=== PATIENT | female | born 1945 | race Caucasian/White ===

== ENCOUNTER 2020-11-22 11:39 | Emergency (ER) | payer MEDICARE, OTHER ==
[2020-11-22] MEDS ORDERED: Nitroglycerin 0.4 MG Tab.SL SL PRN (12:04)
[2020-11-22] MEDS ORDERED: Sodium Chloride 0.9% 1,000 ML IV ONE (12:04)
--- NOTE | 2020-11-22 12:13 | EDM.PDOC ---
ED HPI GENERAL MEDICAL PROBLEM - General Chief Complaint: Chest Pain Stated Complaint: CHEST HEAVINESS, LIGHT HEADED Time Seen by Provider: 11/22/20 12:03 Source of Information: Reports: Patient History Limitations: Reports: No Limitations - History of Present Illness INITIAL COMMENTS - FREE TEXT/NARRATIVE: Patient presents with chest pressure behind the sternum for 4-5 days and a mild burning pain of left upper chest and shoulder. She's also had a few brief episodes of lightheadedness that only last a couple seconds. No pain in neck or jaw. No diaphoresis, N/V. She says it doesn't seem to be affected by activity but sometimes worse after eating. No worsening or new pain in last several hours but she wanted to know if it could be her heart. Middle Chest Pain Score (Numeric/FACES): 3 - Related Data Allergies Allergy/AdvReac Type Severity Reaction Status Date / Time Penicillins Allergy Other Verified 11/22/20 11:49 *Hayfever Allergy Cannot Uncoded 11/22/20 11:49 Remember lactose Allergy Cannot Uncoded 11/22/20 11:49 Remember Home Meds: Home Meds Calcium Carbonate/Vitamin D3 [Calcium 600-Vit D3 800 Tablet] 1 tab PO BID 06/05/18 [History] Calcium Polycarbophil 625 mg PO BID 06/05/18 [History] Flaxseed Oil [Flaxseed] 1,000 mg PO BID 06/05/18 [History] Hydrocortisone [Hydrocortisone 1% Crm] 1 applic TOP BID PRN 06/05/18 [History] Ibuprofen 200 - 600 mg PO Q4HR PRN 06/05/18 [History] Lactase [Lactase Fast Acting] 9,000 unit PO ASDIRECTED PRN 06/05/18 [History] Loperamide [Imodium] 2 mg PO ASDIRECTED PRN 06/05/18 [History] Loratadine [Claritin] 10 mg PO DAILY PRN 06/05/18 [History] Multivitamin with Minerals [Multiple Vitamin] 1 tab PO DAILY 06/05/18 [History] Ranitidine [Zantac] 150 mg PO BID 06/05/18 [History] Sodium Bicarbonate/Sod Citrat [[place] Heartburn Tab Eff] 1 tab PO DAILY PRN 06/05/18 [History] Vit A/C/E AC/Znox/Cupric Oxide [Eye Vitamin-Minerals Tablet] 1 tab PO BID 06/05/18 [History] L.acidoph,Paracasei, B.lactis [Probiotic] 1 each PO DAILY 06/08/18 [History] Past Medical History HEENT History: Reports: Allergic Rhinitis, Cataract, Hard of Hearing, Impaired Vision Cardiovascular History: Reports: SOB on Exertion Respiratory History: Reports: None Gastrointestinal History: Reports: Chronic Diarrhea, Fecal Incontinence, GERD Genitourinary History: Reports: None [employer] History: Reports: Endometriosis Musculoskeletal History: Reports: Other (See Below) Other Musculoskeletal History: Sciatica pain Neurological History: Reports: Migraines Psychiatric History: Reports: Anxiety Endocrine/Metabolic History: Reports: Obesity/BMI 30+, Osteopenia Hematologic History: Reports: None Immunologic History: Reports: None Oncologic (Cancer) History: Reports: None Dermatologic History: Reports: None - Infectious Disease History Infectious Disease History: Reports: Chicken Pox, Measles, Mumps - Past Surgical History HEENT Surgical History: Reports: None Cardiovascular Surgical History: Reports: None Respiratory Surgical History: Reports: None GI Surgical History: Reports: Cholecystectomy, Colonoscopy Female Surgical History: Reports: Hysterectomy Endocrine Surgical History: Reports: None Neurological Surgical History: Reports: None Musculoskeletal Surgical History: Reports: None Dermatological Surgical History: Reports: None Social & Family History - Tobacco Use Tobacco Use Status *Q: Never Tobacco User Second Hand Smoke Exposure: No - Caffeine Use Caffeine Use: Reports: Coffee - Recreational Drug Use Recreational Drug Use: No ED ROS GENERAL - Review of Systems Review Of Systems: See Below Constitutional: Denies: Fever, Chills, Malaise, Weakness HEENT: Reports: No Symptoms Respiratory: Denies: Shortness of Breath, Cough Cardiovascular: Reports: Chest Pain, Lightheadedness. Denies: Syncope Endocrine: Denies: Fatigue GI/Abdominal: Denies: Abdominal Pain, Diarrhea, Vomiting : Denies: Dysuria, Flank Pain Musculoskeletal: Reports: Shoulder Pain (just burning), Arm Pain (burning in upper arm). Denies: Neck Pain, Back Pain, Hand Pain, Leg Pain Skin: Denies: Cyanosis, Jaundice, Mottled, Pallor, Diaphoresis Neurological: Denies: Confusion, Dizziness, Seizure, Syncope, Trouble Speaking, Difficulty Walking Psychiatric: Denies: Agitation, Anxiety, Confusion ED EXAM, GENERAL - Physical Exam Exam: See Below Exam Limited By: No Limitations General Appearance: Alert, WD/WN, No Apparent Distress Eye Exam: Bilateral Eye: EOMI, Normal Inspection, PERRL Ears: Normal External Exam, Hearing Grossly Normal Nose: Normal Inspection, No Blood Throat/Mouth: Normal Inspection, Normal Lips, Normal Voice, No Airway Compromise Head: Atraumatic, Normocephalic Neck: Normal Inspection, Full Range of Motion Respiratory/Chest: No Respiratory Distress, Lungs Clear, Normal Breath Sounds, No Accessory Muscle Use, Chest Non-Tender Cardiovascular: Regular Rate, Rhythm, No Murmur GI/Abdominal: Normal Bowel Sounds, Soft, Non-Tender, No Organomegaly, No Distention Back Exam: Normal Inspection, Full Range of Motion. No: CVA Tenderness (L), CVA Tenderness (R) Extremities: Normal Inspection, Normal Range of Motion Neurological: Alert, Oriented, Normal Cognition, No Motor/Sensory Deficits Psychiatric: Normal Affect, Normal Mood Skin Exam: Warm, Dry, Intact, Normal Color, No Rash Course - Vital Signs Last Recorded V/S: Last Vital Signs Temp 97.7 F 11/22/20 12:51 Pulse 67 11/22/20 12:51 Resp 20 11/22/20 12:51 BP 171/73 H 11/22/20 12:51 Pulse Ox 100 11/22/20 12:51 - Orders/Labs/Meds Orders: Active Orders 24 hr Category Date Time Status Nitroglycerin [Nitrostat] Med 11/22/20 12:04 Ordered 0.4 mg SL Q5M PRN Sodium Chloride 0.9% @ 999 MLS/HR (1000ml) Med 11/22/20 12:04 Ordered Sodium Chloride 0.9% [Normal Saline] 1,000 ml IV .BOLUS Medication Orders Sodium Chloride (Normal Saline) 1,000 mls @ 999 mls/hr IV .BOLUS ONE Stop: 11/22/20 13:04 Last Admin: 11/22/20 12:07 Dose: 999 mls/hr Documented by: CHRISTIAN Nitroglycerin (Nitroglycerin 0.4 Mg Tab.Sl) 0.4 mg SL Q5M PRN PRN Reason: Chest Pain Last Admin: 11/22/20 12:07 Dose: 0.4 mg Documented by: CHRISTIAN Labs: Laboratory Tests 11/22/20 11/22/20 Range/Units 11:45 11:45 WBC 4.89 L (5.00-10.00) 10^3/uL RBC 4.67 (3.80-5.50) 10^6/uL Hgb 15.1 (12.0-16.0) g/dL Hct 44.0 (37.0-47.0) % MCV 94.2 H (82.0-92.0) fL MCH 32.3 H (27.0-31.0) pg MCHC 34.3 (32.0-36.0) g/dL RDW 12.2 (11.5-14.5) % Plt Count 177 (150-400) 10^3/uL MPV 10.1 (7.4-10.4) fL Immature Gran % (Auto) 0.2 (0.0-5.0) % Neut % (Auto) 77.2 H (50.0-70.0) % Lymph % (Auto) 15.3 L (20.0-40.0) % [place] % (Auto) 6.3 (2.0-8.0) % Eos % (Auto) 0.8 L (1.0-3.0) % Baso % (Auto) 0.2 (0.0-1.0) % Neut # (Auto) 3.77 (2.50-7.00) 10^3/uL Lymph # (Auto) 0.75 L (1.00-4.00) 10^3/uL [place] # (Auto) 0.31 (0.10-0.80) 10^3/uL Eos # (Auto) 0.04 L (0.10-0.30) 10^3/uL Baso # (Auto) 0.01 (0.00-0.10) 10^3/uL Immature Gran # (Auto) 0.01 (0.00-0.50) 10^3/uL Sodium 146 H (136-145) mmol/L Potassium 3.6 (3.5-5.1) mmol/L Chloride 107 (98-107) mmol/L Carbon Dioxide 29.7 (21.0-32.0) mmol/L Anion Gap 12.9 (5-15) mmol/L BUN 13 (7-18) mg/dL Creatinine 0.81 (0.51-1.17) mg/dL Est Cr Clr Drug Dosing TNP Estimated GFR (MDRD) > 60 mL/min Glucose 105 (70-140) mg/dL Calcium 9.6 (8.7-10.3) mg/dL Troponin I High Sens 6.200 (0-51.000) pg/mL Meds: Medications Generic Name Dose Route Start Last Admin Trade Name Freq PRN Reason Stop Dose Admin Sodium Chloride 1,000 mls @ 999 mls/hr 11/22/20 12:04 11/22/20 12:07 Normal Saline IV 11/22/20 13:04 999 mls/hr .BOLUS ONE Administration Nitroglycerin 0.4 mg 11/22/20 12:04 11/22/20 12:07 Nitroglycerin 0.4 Mg Tab.Sl SL 0.4 mg Q5M PRN Administration Chest Pain Discontinued Medications Generic Name Dose Route Start Last Admin Trade Name Freq PRN Reason Stop Dose Admin Ondansetron HCl 4 mg 11/22/20 12:13 Ondansetron 4 Mg/2 Ml Sdv IVPUSH 11/22/20 12:14 ONETIME ONE - Re-Assessments/Exams Free Text/Narrative Re-Assessment/Exam: 11/22/20 12:20 First nitro didn't produce any noticeable pain relief but did drop BP and cause some nausea. Fluids are running. BP is 114/60. She wanted Zofran but then declined it for now. 11/22/20 12:21 EKG shows NSR with HR 62. No ST changes. 11/22/20 12:55 Troponin is 6.2 (new assay normal range is 0-51). Patient is feeling well. This definitely does not appear to be cardiac etiology. She will follow up with her PCP as this could have a GI etiology such as hiatal hernia, etc. She says she is due for a full physical anyway so can do this all soon. She is discharged to home in stable condition. Departure - Departure Time of Disposition: 12:48 Disposition: Home, Self-Care 01 Condition: Good Clinical Impression: Chest pain Qualifiers: Chest pain type: unspecified Qualified Code(s): R07.9 - Chest pain, unspecified Referrals: Baylee Lemon MD [Primary Care Provider] - Forms: ED Department Discharge Additional Instructions: Try to notice what activities seem to cause the pain to worsen, such as eating, with as much detail as possible. Follow up with your PCP within the next 1-2 weeks for recheck and further evaluation. Recheck sooner with PCP or return to ER if worsening. Sepsis Event Note (ED) - Focused Exam Vital Signs: Vital Signs Temp Pulse Resp BP BP Pulse Ox 11/22/20 12:51 97.7 F 67 20 171/73 H 100 11/22/20 12:12 71 129/75 11/22/20 12:07 158/65 H 11/22/20 12:01 158/65 H 11/22/20 11:40 97.7 F 67 20 171/73 H 100 - My Orders Last 24 Hours: My Active Orders 11/22/20 12:04 Nitroglycerin [Nitrostat] 0.4 mg SL Q5M PRN Sodium Chloride 0.9% @ 999 MLS/HR (1000ml) Sodium Chloride 0.9% [Normal Saline] 1,000 ml IV .BOLUS - Assessment/Plan Last 24 Hours: My Active Orders 11/22/20 12:04 Nitroglycerin [Nitrostat] 0.4 mg SL Q5M PRN Sodium Chloride 0.9% @ 999 MLS/HR (1000ml) Sodium Chloride 0.9% [Normal Saline] 1,000 ml IV .BOLUS
[2020-11-22] MEDS: Ondansetron 4 MG/2 ML SDV IVPUSH ONE (12:17)
[2020-11-22 12:23] LABS: ANION GAP 12.9 mmol/L (5-15); CHLORIDE,CL 107 mmol/L (98-107); SODIUM,NA 146 mmol/L (136-145)
[2020-11-23] MEDS: Ondansetron 4 MG/2 ML SDV IVPUSH ONE (09:05)
== END 2020-11-22 13:03 | disposition home or self-care (01) ==
LOC: KA.ED 11:39
DX: R07.89 Other chest pain (principal); E66.9 Obesity, unspecified; Z68.30 Body mass index [BMI] 30.0-30.9, adult; Z88.0 Allergy status to penicillin; Z91.011 Allergy to milk products; Z91.048 Other nonmedicinal substance allergy status
CPT/HCPCS: 80048; 84484; 85025; 99284; 99285-25; A9270-GY; J2405; J7030

== ENCOUNTER 2021-06-25 10:16 | Day surgery (SDC) | payer MEDICARE, OTHER ==
[~2021-06-25 10:16] MED LIST: Lactated Ringers 1,000 ML IV SCH; Sodium Chloride 0.9% 10 ML Syringe FLUSH PRN
[2021-06-25] MEDS ORDERED: Midazolam 1 MG/ML 2 ML SDV ONE (10:59)
[2021-06-25] MEDS ORDERED: Propofol 200 MG/20 ML SDV ONE (11:00)
--- NOTE | 2021-06-25 12:21 | PCM.PRNOTE ---
- Free Text/Narrative Note: PROCEDURE PERFORMED: Colonoscopy with biopsies PRE-PROCEDURE DIAGNOSIS/INDICATION FOR PROCEDURE: Chronic diarrhea CONSENT: Informed consent was obtained prior to the procedure after discussion of the risks (including pain, bleeding, infection, perforation, missed polyps, inability to completely remove polyps or complete procedure necessitating repeat colonoscopy, adverse reaction to anesthesia, cardiovascular event), benefits and alternatives and expected outcomes. The patient expressed understanding and wished to proceed. Verbal consent given and consent form signed. PROCEDURAL PAUSE: Completed SEDATION: Per anesthesia DESCRIPTION OF PROCEDURE: Patient was placed in the left lateral decubitus position. After adequate sedation and anesthetic was administered, a rectal exam was performed revealing poor sphincter tone. A lubricated Olympus Video Colonoscope was inserted into the rectum and air insufflation was performed. The colonoscope was advanced through the rectum, sigmoid, descending, transverse, and ascending colon without difficulties. The cecum was reached and the ileocecal valve as well as the appendiceal orifice were identified and pictorially documented. After adequate visualization of the cecum, the scope was withdrawn, giving 360-degree views of the colonic mucosa and retroflexion was performed in the rectum with the following findings noted: Ileocecal valve: Normal Cecum: Normal Ascending colon: Normal Hepatic flexure: Normal Transverse colon: Normal Splenic flexure: Normal Descending colon: Normal Sigmoid colon: Normal Rectum: Normal Random biopsies were obtained with cold forceps of the ascending colon, descending colon, and rectum and placed in separate pathology containers to evaluate for microscopic colitis. The scope was straightened, air suction performed, and the scope withdrawn without complication. Preparation adequacy [place] Bowel Score 9/9. IMPRESSION: Colonoscopy performed revealing no abnormalities aside from poor sphincter tone. Pathology pending to evaluate for microscopic colitis. PLAN: Follow-up in 1 week in clinic to review pathology results and make plan of care.
[2021-06-25] MEDS ORDERED: Iopamidol 755 Mg/ML 75 ML Bottle IVPUSH ONE (14:20)
[2021-06-25] MEDS ORDERED: Diatrizoate Meglumine/Diatrizoate Sodium 37% 30 ML Bottle PO ONE (14:20)
[2021-06-25] MEDS ORDERED: Sodium Chloride 0.9% 50 ML IV SCH (14:30)
== END 2021-06-25 15:00 | disposition home or self-care (01) ==
LOC: KA.SDS 10:16
PROVIDERS: ATTEND Family Medicine
DX: K52.832 Lymphocytic colitis (principal); D72.819 Decreased white blood cell count, unspecified; E78.00 Pure hypercholesterolemia, unspecified; R79.82 Elevated C-reactive protein (CRP); Z90.49 Acquired absence of other specified parts of digestive tract
CPT/HCPCS: 00812; 74177; J2250; J2704; J7120; Q9963; Q9967